=== PATIENT | male | born 1990 | race Hispanic/Latino ===

== ENCOUNTER 2024-01-08 11:53 | Emergency (ER) | payer SELFPAY ==
[2024-01-08 11:58] VITALS: BP 126/86
[2024-01-08] MEDS: ERYTHROMYCIN 0.5% OPHTHALMIC OINTMENT 1 APPLIC OPHTH (14:06)
--- NOTE | 2024-01-11 23:25 | ED.GENMED ---
History of Present Illness
General
Chief Complaint: Eye Problems
Source: patient
Exam Limitations: none
Time Seen by Provider: 01/08/24 12:55
Nursing documentation reviewed up to this point in time: agreed with
Travel History
Have you had any contact with someone who has COVID-19?: No
Do you have any symptoms of coronavirus? Fever > 100 degrees, chills, cough, shortness of breath, sore throat, loss of taste or smell, muscle aches, or headache?: No
History of Present Illness
History of Present Illness:
33 y/o M with no pmh
italian speaking
months of left lower eyelid swelling, started smaller and slowly growing
slightly painful
no vision changes
no corrective lenses
no drainage
no surroundin swelling
has not seen doctor for it
says he didn't have time off of work to come get checked out
no insurance
Past History
Past History
ED Past Medical History: None
ED Past Surgical History: None
Social History
Tobacco: Non-smoker
Alcohol: None
Drug: None
Personal: Single
Employment: Employed
Review of Systems
Review of Systems
Allergies reviewed?: Yes
All Other Systems: Not applicable
Phy Exam
Physical Exam
Physical Exam:
GENERAL: Alert , in no apparent distress
EYE: pupils equal and reactive
left lower eyelid swelling, just inferior to lid margin with firm area of swelling measuring abuot 6 mm
overlying erythema, no drainage
no other eye swelling
eoms intact
CARDIAC: Regular rate and rhythm .
LUNGS: Clear breath sounds bilaterally, no acute respiratory distress, no wheezes/rales/rhonchi
NEUROLOGICAL: Alert and oriented, no focal neuro deficits
SKIN: Warm and dry, skin intact.
PSYCH: Normal and appropriate interaction.
Course
Orders/Labs/Results
Orders:
Orders
01/08/24 13:49
Erythromycin (Ilotycin) [Erythromycin 0.5% Ophthalmic Ointment] See Dose Instructions OPHTH NOW STA
Vital Signs
Initial and Last Documented VS:
Initial Vital Signs
Temp Pulse Resp BP Pulse Ox
98.1 F 58 18 126/86 98
01/08/24 11:58 01/08/24 11:58 01/08/24 11:58 01/08/24 11:58 01/08/24 11:58
Last Documented Vital Signs
Temp Pulse Resp BP Pulse Ox
98.1 F 58 18 126/86 98
01/08/24 11:58 01/08/24 11:58 01/08/24 11:58 01/08/24 11:58 01/08/24 11:58
MDM/Problems Addressed
Differential Diagnosis Includes:
hordeolum, chalazion
MDM/Problems Addressed:
33 y/o M
months of left eye swelling lower eyelid inferior to the margin, worsening in size gradually minimally painful no other surrounding symptosm, no eye pain or vision changes
c/w hordeolum vs. chalazion
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
pt hs no insurance
will need [facility] f[facility]
in meantime, erythromycoin ointment and tea bag compresses
*Critical Care Note
Total Time (30-74mins, 75-104mins- exclusive of procedures): Not Applicable
ED Attending Note
-
Portions of this chart may have been created with voice recognition software.� Occasional wrong word or��sound alike� substitutions may have occurred due to the inherent limitations of voice recognition software.
Discharge Plan
Departure
Patient Disposition: Home (Routine Discharge)
Date of Disposition: 01/08/24
Time of Disposition: 13:44
Patient with high blood pressure during this ER visit?: No
Condition: Fair
Covid-19: Not Applicable
Discharge Problem:
Hordeolum
Instructions: Stye
Referrals:
[facility] [Outside] - Follow up in 5-7 days (clinica)
Jd Garner MD [Active] - Follow up in 5-7 days (eye doctor)
Activity Restrictions/Additional Instructions:
it appears you have a stye or a chalazion. you need to follow up with an eye doctor. if you cannot afford to go to the eye doctor, try going through the [facility] here at the hospital and they can perhaps help you get follow up.
because if this does not improve with antibiotics, you may need it drained.
use the ointment 3 times a day or 5 days. pull your eyelid down and squeeze some in the crevas and then wait 5 minutes before wiping the excess away. continue warm compresses with a hot tea bag. return for severe pain, swelling, vision changes or
any concerns.
parece que tienes un orzuelo o un chalazi�n. es necesario realizar un seguimiento con un oftalm�logo. Si no puede permitirse el lujo de ir al oculista, intente acudir a la cl�[facility]drigo grat[facility]a [facility] aqu� en el hospital y jennifer vez puedan
ayudarle a realizar un seguimiento. porque si esto no mejora con antibi�ticos, es posible que necesites drenarlo.
use la pomada 3 veces al d�a o 5 d�as. Baje el p�rpado y apriete un poco en las grietas y luego espere 5 minutos antes de limpiar el exceso. Contin�e con compresas tibias con sofía bolsita de t� caliente. Regrese si tiene dolor intenso, hinchaz�n,
cambios en la visi�n o cualquier inquietud.
Interventions
Interventions:
*Risk Screen - Suicide Last Done: 01/08/24 11:58
*General Assessment Last Done: 01/08/24 14:14
*Neglect/Abuse Screening Last Done: 01/08/24 14:14
ED- Fall Risk Assessment Last Done: 01/08/24 14:14
*ED COVID-19 Vaccine History Last Done: 01/08/24 11:58
*Nursing Disposition Last Done: 01/08/24 14:14
Discharge Date and Time
Discharge Date/Time: 01/08/24 14:15
Print Language: DJIBOUTIAN
== END 2024-01-08 14:15 | disposition home or self-care (01) ==
LOC: EMR 11:53
PROVIDERS: EMERGENCY PHYSICIAN Emergency Medicine
DX: R22.0 Localized swelling, mass and lump, head (principal); H00.015 Hordeolum externum left lower eyelid
CPT/HCPCS: 99283